=== PATIENT | female | born 1935 | race Caucasian/White ===

== ENCOUNTER → 2017-04-16 | Outpatient (CLI) | payer MEDICARE, BC ==
[~2017-04-16] MED LIST: CELE20TA PO; CLON.1 PO; DYAZ37.52 PO; LEVO75TA3 PO
[2017-04-16 13:29] LABS: HEMATOCRIT 38.4 % (35.0-46.0); MEAN CORPUSCULAR HEMOGLOBIN 30.8 PG (27.0-34.0); MEAN CORPUSCULAR HGB CONC 33.5 % (32.0-36.0); PLATELET COUNT 198 TH/MM3 (150-450); RED BLOOD COUNT 4.18 MIL/MM3 (4.00-5.30); RED CELL DISTRIBUTION WIDTH 13.8 % (11.6-17.2); REVIEW FLAG FINAL; WHITE BLOOD COUNT 4.4 TH/MM3 (4.0-11.0)
[2017-04-16 13:31] LABS: ALT (GPT) 20 U/L (10-53); ANION GAP 4 MEQ/L (5-15); AST (GOT) 23 U/L (15-37); BICARBONATE 31.5 MEQ/L (21.0-32.0); BLOOD UREA NITROGEN 13 MG/DL (7-18); CHLORIDE 102 MEQ/L (98-107); GLOMERULAR FILTRATION RATE 65 ML/MIN (>89); GLUCOSE,FASTING 90 MG/DL (74-99); SODIUM (NA) 137 MEQ/L (136-145)
[2017-04-16 13:35] LABS: ALKALINE PHOSPHATASE 82 U/L (45-117); HDL CHOLESTEROL 70.2 MG/DL (40.0-60.0); LDL CHOLESTEROL 67 MG/DL (0-99); TOTAL BILIRUBIN ADULT 0.8 MG/DL (0.2-1.0)
== END ==
LOC: PLAB 10:23
DX: I25.10 Atherosclerotic heart disease of native coronary artery without angina pectoris (principal); I50.22 Chronic systolic (congestive) heart failure
CPT/HCPCS: 36415; 80053; 80061; 83880; 85027

== ENCOUNTER 2017-06-09 22:45 | Inpatient (IN) | payer MEDICARE, BC ==
[~2017-06-09] VITALS: Ht 157.5 cm; Wt 62.0 kg
[2017-06-09 22:51] VITALS: BP 83/54; PULSE 102; RESP 20; TEMP 97.4; O2SAT 99
[2017-06-09] MEDS ORDERED: SODIUM CHLORIDE 0.9% FLUSH 10 ML FLUSH IVF PRN (23:00)
[2017-06-09 23:03] VITALS: RESP 20; O2SAT 100
[2017-06-09 23:07] VITALS: BP 91/53; PULSE 102; RESP 15
[2017-06-09 23:10] VITALS: BP 86/51; PULSE 105; RESP 20; O2SAT 100
[2017-06-09 23:15] VITALS: O2SAT 100
[2017-06-09] MEDS ORDERED: SODIUM CHLORID 0.9% 500 ML INJ 500 ML IV ONE (23:15)
[2017-06-09] MEDS ORDERED: HEPARIN SODIUM - IV 10,000 UNITS/10 ML VIAL IV ONE (23:15)
--- NOTE | 2017-06-09 23:25 | RADRPT ---
EXAM DATE/TIME: 06/09/2017 23:13 [place] COMPARISON: No previous studies available for comparison. INDICATIONS : Chest pain. MEDICAL HISTORY : None. SURGICAL HISTORY : None. ENCOUNTER: Initial ACUITY: 1 day PAIN SCORE: 7/10 LOCATION: Bilateral chest FINDINGS: A single view of the chest demonstrates no focal consolidation. Minimal basilar dependent atelectasis . No effusion. No pneumothorax. Mildly tortuous aorta. Mild cardiomegaly. CONCLUSION: 1. Minimal basilar dependent atelectasis. No effusion or pneumothorax. Bong Wilkinson MD on June 09, 2017 at 23:21 Board Certified Radiologist. This report was verified electronically.
[2017-06-09] MEDS ORDERED: SIMV20TA PO (23:29)
[2017-06-09] MEDS ORDERED: CLOP75TA PO (23:29)
[2017-06-09] MEDS ORDERED: ESCI20TA PO (23:29)
[2017-06-09] MEDS ORDERED: CARV6.252 PO (23:29)
[2017-06-09] MEDS ORDERED: POTA-163 PO (23:29)
[2017-06-09] MEDS ORDERED: CARV3.12 PO (23:29)
[2017-06-09] MEDS ORDERED: FURO40TA PO (23:29)
[2017-06-09] MEDS ORDERED: PANT40TA3 PO (23:29)
[2017-06-09] MEDS ORDERED: SACU1TAB7 PO (23:29)
[2017-06-09] MEDS ORDERED: LEVO88TA2 PO (23:29)
[2017-06-09] MEDS ORDERED: ONDANSETRON HCL 4 MG/2 ML VIAL IV PUSH ONE (23:30)
[2017-06-09] MEDS ORDERED: MORPHINE SULFATE 4 MG/ML INJ IV PUSH ONE (23:30)
--- NOTE | 2017-06-09 23:32 | PD ---
HPI Chief Complaint: Chest Pain Time Seen by Provider: 22:57 Travel History International Travel<30 days: No Contact w/Intl Traveler<30days: No Traveled to known affect area: No History of Present Illness HPI 81-year-old female came to the emergency room with history of sudden onset chest pain left-sided going down both her arms about half an hour prior to coming to the emergency room. Her called 911. When EMS arrived they noticed that she was in A. fib with RVR. Patient said her pain initially was 10 out of 10. EMS called over the radio to get permission for Cardizem 20 mg IV which was given to them. When patient arrived her heart rate had come down to 100s. After arrival patient said that her chest pain was completely gone but now she was experiencing pain in the back of her neck. She did look in moderate distress and anxious somewhat. Initial blood pressure was 86/51 upon arrival. Patient has history of coronary artery disease and has had 2 stents put in. Last stent was about 2 years ago as per her . Patient had received 225 mg of aspirin as per EMS. [facility] Past Medical History Narrative Medical List of her past medical, surgical, social and family history is reviewed from the nursing note. Atrial Fibrillation: Yes Depression: Yes Diminished Hearing: No Hypertension: Yes Immunizations Current: Yes Thyroid Disease: Yes Tetanus Vaccination: Unknown Influenza Vaccination: Yes ?: Not Menopausal: Yes Past Surgical History Other Surgery: Yes (SINUS SURGERY) Social History Alcohol Use: No Tobacco Use: No Substance Use: No Allergies-Medications (Allergen,Severity, Reaction): Coded Allergies: Sulfa (Sulfonamide Antibiotics) (Unverified Allergy, Mild, 12/12/16) Comments List of her allergies reviewed from the nursing note. Reported Meds & Prescriptions Reported Meds & Active Scripts Active Reported Levothyroxine (Levothyroxine Sodium) 88 Mcg Tab 88 Mcg PO DAILY Pantoprazole (Pantoprazole Sodium) 40 Mg Tab 40 Mg PO BID Furosemide 40 Mg Tab 40 Mg PO DAILY Clopidogrel (Clopidogrel Bisulfate) 75 Mg Tab 75 Mg PO DAILY Potassium Chloride ER (Potassium Chloride) 20 Meq Tab 20 Meq PO DAILY Entresto (Sacubitril-Valsartan) 49-51 Mg Tab 1 Tab PO DAILY Simvastatin 20 Mg Tab 20 Mg PO DAILY Escitalopram (Escitalopram Oxalate) 20 Mg Tab 20 Mg PO DAILY Narrative Medication List of home medications reviewed from the nursing note. Review of Systems Except as stated in HPI: all other systems reviewed are Neg Cardiovascular: Positive: Chest Pain or Discomfort Physical Exam Narrative GENERAL: Awake, alert, anxious, moderate distress SKIN: Focused skin assessment warm/dry. Pale HEAD: Atraumatic. Normocephalic. EYES: Pupils equal and round. No scleral icterus. No injection or drainage. ENT: No nasal bleeding or discharge. Mucous membranes pink and moist. NECK: Trachea midline. No JVD. CARDIOVASCULAR: Irregularly irregular rhythm. No murmur appreciated. RESPIRATORY: No accessory muscle use. Clear to auscultation. Breath sounds equal bilaterally. GASTROINTESTINAL: Abdomen soft, non-tender, nondistended. Hepatic and splenic margins not palpable. MUSCULOSKELETAL: No obvious deformities. No clubbing. No cyanosis. No edema. NEUROLOGICAL: Awake and alert. No obvious cranial nerve deficits. Motor grossly within normal limits. Normal speech. PSYCHIATRIC: Appropriate mood and affect; insight and judgment normal. Data Data Last Documented VS Vital Signs Date Time Temp Pulse Resp B/P (MAP) Pulse Ox O2 Delivery O2 Flow Rate FiO2 06/10/17 00:30 104 16 92/51 (65) 100 Nasal Cannula 2.00 06/09/17 22:51 97.4 Orders Orders Electrocardiogram (06/09/17 22:57) Basic Metabolic Panel (Bmp) (06/09/17 22:57) Ckmb (Isoenzyme) Profile (06/09/17 22:57) Complete Blood Count With Diff (06/09/17 22:57) Magnesium (Mg) (06/09/17 22:57) Prothrombin Time / Inr (Pt) (06/09/17 22:57) Troponin I (06/09/17 22:57) Chest, Single Ap (06/09/17 22:57) Ecg Monitoring (06/09/17 22:57) Bilateral Bp Monitoring (06/09/17 22:57) Iv Access Insert/Monitor (06/09/17 22:57) Oximetry (06/09/17 22:57) Oxygen Administration (06/09/17 22:57) Sodium Chloride 0.9% Flush (Ns Flush) (06/09/17 23:00) Heparin Inj (Heparin Inj) (06/09/17 23:15) Heparin Inj (Heparin Inj) (06/10/17 05:15) Heparin Inj (Heparin Inj) (06/10/17 05:15) Heparin-D5w 25,000 U/250 Ml (Heparin-D5w (06/09/17 23:15) Act Partial Throm Time (Ptt) (06/10/17 06:15) Sodium Chlorid 0.9% 500 Ml Inj (Ns 500 M (06/09/17 23:15) Morphine Inj (Morphine Inj) (06/09/17 23:30) Ondansetron Inj (Zofran Inj) (06/09/17 23:30) Admit To Inpatient (06/10/17 ) Vital Signs (Adult) Q4H (06/10/17 00:26) Activity Oob With Assistance (06/10/17:26) [place] Machine Operator / Telemetry .CONTINUOUS (06/10/17:26) Intake + Output JAVIER.QSHIFT (06/10/17 00:26) Diet Heart Healthy (06/10/17 Breakfast) Sodium Chlor 0.9% 1000 Ml Inj (Ns 1000 M (06/10/17 01:00) Sodium Chloride 0.9% Flush (Ns Flush) (06/10/17 00:30) Sodium Chloride 0.9% Flush (Ns Flush) (06/10/17 09:00) Ondansetron Inj (Zofran Inj) (06/10/17 00:30) Comprehensive Metabolic Panel (06/10/17 06:00) Complete Blood Count With Diff (06/10/17 06:00) Troponin I (06/10/17 06:00) Troponin I (06/10/17 12:00) Case Management Consult (06/10/17 00:26) Acetaminophen (Tylenol) (06/10/17 00:30) Acetamin-Hydrocod 325-5 Mg ([place] 5-325 (06/10/17 00:30) Morphine Inj (Morphine Inj) (06/10/17 00:30) Docusate Sodium-Senna (Payton-Colace) (06/10/17 09:00) Magnesium Hydroxide Liq (Milk Of Magnesi (06/10/17 00:30) Sennosides (Senokot) (06/10/17 00:30) Bisacodyl Supp (Dulcolax Supp) (06/10/17 00:30) Lactulose Liq (Lactulose Liq) (06/10/17 00:30) Inpatient Certification (06/10/17 ) Admit Order (Ed Use Only) (06/10/17 00:32) Escitalopram (Lexapro) (06/10/17 09:00) Pantoprazole (Protonix) (06/10/17 09:00) Pravastatin (Pravachol) (06/10/17 09:00) Labs Laboratory Tests Test 06/09/17 23:10 06/09/17 23:15 White Blood Count 4.4 TH/MM3 Red Blood Count 4.42 MIL/MM3 Hemoglobin 13.8 GM/DL Hematocrit 40.5 % Mean Corpuscular Volume 91.7 FL Mean Corpuscular Hemoglobin 31.2 PG Mean Corpuscular Hemoglobin Concent 34.0 % Red Cell Distribution Width 13.9 % Platelet Count 195 TH/MM3 Mean Platelet Volume 8.7 FL Neutrophils (%) (Auto) 34.0 % Lymphocytes (%) (Auto) 53.5 % Monocytes (%) (Auto) 6.0 % Eosinophils (%) (Auto) 5.8 % Basophils (%) (Auto) 0.7 % Neutrophils # (Auto) 1.5 TH/MM3 Lymphocytes # (Auto) 2.3 TH/MM3 Monocytes # (Auto) 0.3 TH/MM3 Eosinophils # (Auto) 0.3 TH/MM3 Basophils # (Auto) 0.0 TH/MM3 CBC Comment AUTO DIFF Differential Comment AUTO DIFF CONFIRMED Prothrombin Time 11.2 SEC Prothromb Time International Ratio 1.1 RATIO Blood Urea Nitrogen 20 MG/DL Creatinine 0.95 MG/DL Random Glucose 94 MG/DL Calcium Level 9.2 MG/DL Magnesium Level 1.9 MG/DL Sodium Level 139 MEQ/L Potassium Level 3.7 MEQ/L Chloride Level 103 MEQ/L Carbon Dioxide Level 26.7 MEQ/L Anion Gap 9 MEQ/L Estimat Glomerular Filtration Rate 56 ML/MIN Total Creatine Kinase 95 U/L Troponin I LESS THAN 0.02 NG/ML Activated Partial Thromboplast Time 27.5 SEC [facility] Medical Decision Making Medical Screen Exam Complete: Yes Emergency Medical Condition: Yes Medical Record Reviewed: Yes Interpretation(s) Twelve-lead EKG was reviewed by me. Atrial flutter with fibrillation, PVCs, questionable inferior wall ST elevation in lateral depression. Heart rate of 101 bpm. Differential Diagnosis New onset A. fib, STEMI, non-STEMI Narrative Course 12:22 AM after patient's arrival and seeing the 12-lead EKG a STEMI alert was called since this seemed to be ST elevation in the inferior leads. A copy of the EKG was transmitted to the warehouse distribution manager reconciliation specialist Dr. Quach. After reviewing the EKG Dr. Quach called off the STEMI alert. He was okay with the heparin bolus and drip that was ordered. He wanted to wait for the blood test result which has come back and troponin is negative. Patient will be admitted to CICU. Awaiting for the hospitalist to call back. She was given 500 cc of fluid bolus. Currently the heart rate is between 100s to 1 teens. Patient remained chest pain-free. Critical Care Narrative Aggregate critical care time was 45 minutes. Time to perform other separately billable procedures was not included in the critical care time. My time did not include minutes spent treating any other patients simultaneously or on activities that did not directly contribute to the patient's treatment. The services I provided to this patient were to treat and/or prevent clinically significant deterioration that could result in: Chest pain, new onset A. fib, heparin bolus and drip I provided critical care services requiring my management, as noted below: Chart data review, documentation time, medication orders and management, vital sign assessments/reviewing monitor data, ordering and reviewing lab tests, ordering and interpreting/reviewing x-rays and diagnostic studies, care of the patient and discussion of the patient with the admitting physicians. Procedures EKG Prior to Arrival: No Physician Communication Physician Communication Dr. Quach Diagnosis Primary Impression: New onset a-fib Additional Impressions: Atrial fibrillation with RVR Chest pain Qualified Codes: R07.9 - Chest pain, unspecified Admitting Information Admitting Physician Requests: Admit Scripts Aspirin (Aspirin) 81 Mg Chew 81 MG CHEW DAILY for a-fib for 30 Days, #30 TAB 0 Refills Prov: Jazz Valencia MD 06/11/17 Diltiazem CD 24 HR (Diltiazem CD 24 HR) 120 Mg Caper 120 MG PO DAILY for a-fib for 30 Days, #30 CAP 0 Refills Prov: Jazz Valencia MD 06/11/17 Chel Cazares MD Jun 09, 2017 23:32
[2017-06-09 23:44] LABS: AUTOMATED NEUTROPHIL # 1.5 TH/MM3 (1.8-7.7); BASOPHIL % 0.7 % (0.0-2.0); EOSINOPHIL # 0.3 TH/MM3 (0-0.4); EOSINOPHIL % 5.8 % (0.0-4.0); HEMATOCRIT 40.5 % (35.0-46.0); HEMOGLOBIN 13.8 GM/DL (11.6-15.3); LYMPH % 53.5 % (9.0-44.0); LYMPHOCYTE # 2.3 TH/MM3 (1.0-4.8); MEAN CELL VOLUME 91.7 FL (80.0-100.0); MEAN CORPUSCULAR HEMOGLOBIN 31.2 PG (27.0-34.0); MEAN PLATELET VOLUME 8.7 FL (7.0-11.0); MONOCYTE # 0.3 TH/MM3 (0-0.9); PLATELET COUNT 195 TH/MM3 (150-450); RED BLOOD COUNT 4.42 MIL/MM3 (4.00-5.30); RED CELL DISTRIBUTION WIDTH 13.9 % (11.6-17.2); WHITE BLOOD COUNT 4.4 TH/MM3 (4.0-11.0)
[2017-06-09 23:47] LABS: INTERNATIONAL NORMALIZED RATIO 1.1 RATIO; PROTHROMBIN TIME - PATIENT 11.2 SEC (9.8-11.6)
[2017-06-10] VITALS (24 sets, daily range): BP systolic 85–119; BP diastolic 46–68; PULSE 66–131; RESP 14–20; TEMP 98–98.6; O2SAT 96–100
[2017-06-10 00:03] LABS: BICARBONATE 26.7 MEQ/L (21.0-32.0); BLOOD UREA NITROGEN 20 MG/DL (7-18); CALCIUM 9.2 MG/DL (8.5-10.1); CHLORIDE 103 MEQ/L (98-107); CREATININE 0.95 MG/DL (0.50-1.00); GLOMERULAR FILTRATION RATE 56 ML/MIN (>89); GLUCOSE,RANDOM 94 MG/DL (74-106); MAGNESIUM 1.9 MG/DL (1.5-2.5); SODIUM (NA) 139 MEQ/L (136-145); TROPONIN I LESS THAN 0.02 NG/ML (0.02-0.05)
[2017-06-10] MEDS ORDERED: MAGNESIUM HYDROXIDE SUSP 30 ML CUP PO PRN (00:30)
[2017-06-10] MEDS ORDERED: SODIUM CHLORIDE 0.9% FLUSH 10 ML FLUSH IV FLUSH PRN (00:30)
[2017-06-10] MEDS ORDERED: LACTULOSE SYRUP 20 GM/30 ML CUP PO PRN (00:30)
[2017-06-10] MEDS ORDERED: BISACODYL 10 MG SUPP RECTAL PRN (00:30)
[2017-06-10] MEDS ORDERED: ACETAMINOPHEN/HYDROcodone 325 MG/5 MG TAB PO PRN (00:30)
[2017-06-10] MEDS ORDERED: SENNOSIDES 8.6 MG TAB PO PRN (00:30)
[2017-06-10] MEDS ORDERED: ACETAMINOPHEN 325 MG TAB PO PRN (00:30)
[2017-06-10] MEDS ORDERED: MORPHINE SULFATE 2 MG/ML INJ IV PUSH PRN (00:30)
[2017-06-10] MEDS ORDERED: ONDANSETRON HCL 4 MG/2 ML VIAL IVP PRN (00:30)
--- NOTE | 2017-06-10 01:13 | HHI.HP ---
HPI Service [facility] Primary Care Physician Non-Staff Admission Diagnosis new-onset A. fib, chest pain, A. fib with RVR Diagnoses: (1) Atrial fibrillation with RVR Diagnosis: Principal (2) Chest pain Diagnosis: Principal (3) Hypotension Diagnosis: Principal (4) Dehydration Diagnosis: Principal Travel History International Travel<30 Days: No Contact w/Intl Traveler <30 Da: No Traveled to Known Affected Are: No History of Present Illness This is an 81-year-old female with a PMH of HTN, CAD, Depression and Hypothyroidism was brought to the ER by EMS secondary to complaints of chest pain. Per pt, states she hadn't been feeling well all day, feeling tired/ fatigued which is unusual for her. States she was in bed reading a book when she had acute onset of chest pain. Chest pain substernal, intermittent, severe , 9/10, radiating to bilateral upper arms. Shortly after chest pain states she developed palpitations. Upon EMS arrival, pt noted to be in A-fib w/ RVR, HR 130's s/p Cardizem 20mg IV x1 w/ HR down to low 100's. Denies h/o A-fib. Follows w/ Dr. Malone as outpatient, normal work up on last visit. EKG obtained in ER concerning for acute ischemia, STEMI alert initiated, however upon reviewed by Cardiology STEMI cancelled. Started on Heparin gtt. Currently chest pain free. BP 91/53, HR 102, O2 sat 100% on 2L NC, Afebrile. CBC essentially unremarkable. Chemistry unremarkable except for BUN 20. GFR 56. Troponin negative. INR 1.1. CXR minimal basilar atelectasis. Review of Systems Except as stated in HPI: all other systems reviewed are Neg ROS: 14 point review of systems otherwise negative. Past Family Social History Past Medical History PMH: HTN, CAD, Depression and Hypothyroidism Past Surgical History PAST SURGICAL HISTORY: Sinus Surgery, Cardiac Stent Allergies: Coded Allergies: Sulfa (Sulfonamide Antibiotics) (Unverified Allergy, Mild, 12/12/16) Family History PAST FAMILY HISTORY: Reviewed. No h/o DM or CAD Social History PAST SOCIAL HISTORY: Negative for alcohol, tobacco or drugs. Physical Exam Vital Signs Vital Signs Date Time Temp Pulse Resp B/P (MAP) Pulse Ox O2 Delivery O2 Flow Rate FiO2 06/10/17 00:07 100 20 90/52 (65) 100 Nasal Cannula 2.00 06/09/17 23:41 20 100 Nasal Cannula 2.00 06/09/17 23:15 100 2.00 06/09/17 23:15 100 Nasal Cannula 2.00 06/09/17 23:10 105 20 86/51 (63) 100 Nasal Cannula 2.00 06/09/17 23:07 102 15 91/53 (66) Nasal Cannula 2.00 06/09/17 23:03 20 100 Nasal Cannula 2.00 06/09/17 23:02 100 Nasal Cannula 2.00 06/09/17 22:51 97.4 102 20 83/54 (64) 99 Physical Exam PE: GENERAL: Very pleasant elderly white female in no acute distress. HEENT: PERRLA, EOMI. No scleral icterus or conjunctival pallor. No lid lag or facial droop. CARDIOVASCULAR: Irregularly irregular, HR 100s. No obvious murmurs to auscultation. No chest tenderness to palpation. RESPIRATORY: No obvious rhonchi or wheezing. Clear to auscultation. Breath sounds equal bilaterally. GASTROINTESTINAL: Abdomen soft, non-tender, nondistended. BS normal. MUSCULOSKELETAL: Extremities without clubbing, cyanosis, or edema. No obvious deformities. NEUROLOGICAL: Awake, alert and oriented x4. No focal neurologic deficits. Moving both upper and lower extremities spontaneously. Laboratory Laboratory Tests Test 06/09/17 23:10 White Blood Count 4.4 Red Blood Count 4.42 Hemoglobin 13.8 Hematocrit 40.5 Mean Corpuscular Volume 91.7 Mean Corpuscular Hemoglobin 31.2 Mean Corpuscular Hemoglobin Concent 34.0 Red Cell Distribution Width 13.9 Platelet Count 195 Mean Platelet Volume 8.7 Neutrophils (%) (Auto) 34.0 Lymphocytes (%) (Auto) 53.5 Monocytes (%) (Auto) 6.0 Eosinophils (%) (Auto) 5.8 Basophils (%) (Auto) 0.7 Neutrophils # (Auto) 1.5 Lymphocytes # (Auto) 2.3 Monocytes # (Auto) 0.3 Eosinophils # (Auto) 0.3 Basophils # (Auto) 0.0 CBC Comment AUTO DIFF Differential Comment AUTO DIFF CONFIRMED Prothrombin Time 11.2 Prothromb Time International Ratio 1.1 Blood Urea Nitrogen 20 Creatinine 0.95 Random Glucose 94 Calcium Level 9.2 Magnesium Level 1.9 Sodium Level 139 Potassium Level 3.7 Chloride Level 103 Carbon Dioxide Level 26.7 Anion Gap 9 Estimat Glomerular Filtration Rate 56 Total Creatine Kinase 95 Troponin I LESS THAN 0.02 Result Diagram: 06/09/17230906/09/172309 Caprini VTE Risk Assessment Caprini VTE Risk Assessment: No/Low Risk (score <= 1) Caprini Risk Assessment Model Point Value = 1 Point Value = 2 Point Value = 3 Point Value = 5 Age 41-60 Minor surgery BMI > 25 kg/m2 Swollen legs Varicose veins or History of unexplained or recurrent spontaneous Oral contraceptives or hormone replacement Sepsis (< 1 month) Serious lung disease, including pneumonia (< 1 month) Abnormal pulmonary function Acute myocardial infarction Congestive heart failure (< 1 month) History of inflammatory bowel disease Medical patient at bed rest Age 61-74 Arthroscopic surgery Major open surgery (> 45 min) Laparoscopic surgery (> 45 min) Malignancy Confined to bed (> 72 hours) Immobilizing plaster cast Central venous access Age >= 75 History of VTE Family history of VTE Factor V Leiden Prothrombin [id number] Lupus anticoagulant Anticardiolipin antibodies Elevated serum homocysteine Heparin-induced thrombocytopenia Other congenital or acquired thrombophilia Stroke (< 1 month) Elective arthroplasty Hip, pelvis, or leg fracture Acute spinal cord injury (< 1 month) Prophylaxis Regimen Total Risk Factor Score Risk Level Prophylaxis Regimen 0-1 Low Early ambulation 2 Moderate Order ONE of the following: *Sequential Compression Device (SCD) *Heparin 5000 units SQ BID 3-4 Higher Order ONE of the following medications: *Heparin 5000 units SQ TID *Enoxaparin/Lovenox 40 mg SQ daily (WT < 150 kg, CrCl > 30 mL/min) *Enoxaparin/Lovenox 30 mg SQ daily (WT < 150 kg, CrCl > 10-29 mL/min) *Enoxaparin/Lovenox 30 mg SQ BID (WT < 150 kg, CrCl > 30 mL/min) AND/OR *Sequential Compression Device (SCD) 5 or more Highest Order ONE of the following medications: *Heparin 5000 units SQ TID (Preferred with Epidurals) *Enoxaparin/Lovenox 40 mg SQ daily (WT < 150 kg, CrCl > 30 mL/min) *Enoxaparin/Lovenox 30 mg SQ daily (WT < 150 kg, CrCl > 10-29 mL/min) *Enoxaparin/Lovenox 30 mg SQ BID (WT < 150 kg, CrCl > 30 mL/min) AND *Sequential Compression Device (SCD) Assessment and Plan Problem List: (1) Atrial fibrillation with RVR ICD Code: I48.91 - Unspecified atrial fibrillation Status: Acute (2) Chest pain ICD Code: R07.9 - Chest pain, unspecified Status: Acute (3) Dehydration ICD Code: E86.0 - Dehydration (4) Hypotension ICD Code: I95.9 - Hypotension, unspecified Assessment and Plan A/P: 1. Chest Pain: r/o ACS, EKG w/ concern for ischemia, however STEMI cancelled. Currently chest pain free. Initial trop negative. Admit to CIC, place on telemetry, check serial cardiac enzymes for trend. Continue w/ Heparin gtt. Start ASA, resume Statin. Hold B-Agus and NTG in light of hypotension. Morphine prn. Dr. Quach consulted as part of STEMI Alert, follows w/ Dr. Malone, will consult for further eval/recommendations. 2. A-fib w/ RVR: New Onset. S/p Cardizem 20mg IV x1 by EMS, HR 100's. Monitor on telemetry, check enzymes as above. Check Echo to eval for valvular abnormality/cardiomyopathy. 3. Hypotension: BP 80-90's systolic since arrival, no h/o hypotension. Hold BP meds, IVF for hydration, eval closely for possible ischemia w/ shock. 4. Dehydration: BUN 20, GFR 56. IVF for hydration, repeat labs in am. 5. DVT Prophylaxis: SCD/Teds. 6. Social work for d/c planning as needed. 7. Case discussed w/ ER physician at length, labs/records/imaging reviewed by me. Physician Certification 2 Midnight Certification Type: Admission for Inpatient Services Order for Inpatient Services The services are ordered in accordance with Medicare regulations or non- Medicare payer requirements, as applicable. In the case of services not specified as inpatient-only, they are appropriately provided as inpatient services in accordance with the 2-midnight benchmark. Estimated LOS (days): 2 days is the estimated time the patient will need to remain in the hospital, assuming treatment plan goals are met and no additional complications. Post-Hospital Plan: Not yet determined Problem Qualifiers (1) Chest pain: Qualified Codes: R07.9 - Chest pain, unspecified Fatou James MD Jun 10, 2017 01:12
[2017-06-10] MEDS: SODIUM CHLOR 0.9% 1000 ML INJ 1,000 ML IV SCH ×3 (02:33→21:36)
[2017-06-10] MEDS: HEPARIN-D5W 25,000 U/250 ML 250 ML IV PRN (03:38)
[2017-06-10] MEDS ORDERED: HEPARIN SODIUM - IV 10,000 UNITS/10 ML VIAL IV PRN ×2 (05:15)
[2017-06-10] MEDS: LEVOTHYROXINE SODIUM 88 MCG TAB PO SCH (06:40)
[2017-06-10 07:22] LABS: BASOPHIL % 0.8 % (0.0-2.0); EOSINOPHIL # 0.2 TH/MM3 (0-0.4); EOSINOPHIL % 4.3 % (0.0-4.0); HEMATOCRIT 34.5 % (35.0-46.0); LYMPHOCYTE # 1.8 TH/MM3 (1.0-4.8); MEAN CELL VOLUME 91.3 FL (80.0-100.0); MEAN CORPUSCULAR HEMOGLOBIN 31.9 PG (27.0-34.0); MEAN CORPUSCULAR HGB CONC 34.9 % (32.0-36.0); MEAN PLATELET VOLUME 8.1 FL (7.0-11.0); MONO % 7.3 % (0.0-8.0); MONOCYTE # 0.3 TH/MM3 (0-0.9); NEUT % 46.6 % (16.0-70.0); PLATELET COUNT 173 TH/MM3 (150-450); RED BLOOD COUNT 3.77 MIL/MM3 (4.00-5.30); RED CELL DISTRIBUTION WIDTH 13.9 % (11.6-17.2); WHITE BLOOD COUNT 4.4 TH/MM3 (4.0-11.0)
[2017-06-10 07:54] LABS: ALBUMIN 3.1 GM/DL (3.4-5.0); AST (GOT) 22 U/L (15-37); BICARBONATE 27.9 MEQ/L (21.0-32.0); BLOOD UREA NITROGEN 17 MG/DL (7-18); CALCIUM 8.5 MG/DL (8.5-10.1); CHLORIDE 105 MEQ/L (98-107); GLOMERULAR FILTRATION RATE 69 ML/MIN (>89); GLUCOSE,RANDOM 91 MG/DL (74-106); SODIUM (NA) 138 MEQ/L (136-145)
[2017-06-10 07:55] LABS: ALT (GPT) 14 U/L (10-53)
[2017-06-10 07:59] LABS: ALKALINE PHOSPHATASE 71 U/L (45-117); TOTAL BILIRUBIN ADULT 0.5 MG/DL (0.2-1.0); TOTAL PROTEIN 5.9 GM/DL (6.4-8.2); TROPONIN I 0.08 NG/ML (0.02-0.05)
[2017-06-10] MEDS: PANTOPRAZOLE SOD 40 MG DELAYED RELEASE TAB PO SCH ×2 (10:10→21:36)
[2017-06-10] MEDS: PRAVASTATIN SOD 40 MG TAB PO SCH (10:11)
[2017-06-10] MEDS: SODIUM CHLORIDE 0.9% FLUSH 10 ML FLUSH IV FLUSH SCH ×2 (10:11→21:36)
[2017-06-10] MEDS: DOCUSATE SODIUM 50 MG/SENNA 8.6 MG TAB PO SCH ×2 (10:11→21:36)
[2017-06-10] MEDS: ESCITALOPRAM OXALATE 20 MG TAB PO SCH (10:12)
[2017-06-10] MEDS ORDERED: DIGOXIN 0.5 MG/2 ML VIAL IV PUSH ONE (12:15)
[2017-06-10] MEDS: DILTIAZEM HCL 30 MG TAB PO SCH ×2 (13:08→17:12)
--- NOTE | 2017-06-10 13:54 | MB ---
cc: TRES METCALF MD, HANSCY M.D. DATE OF CONSULTATION: 06/10/2017. REASON FOR CONSULTATION: Electrophysiology consult for atrial fibrillation with fast ventricular response. HISTORY OF PRESENT ILLNESS: Mrs. Rodriguez is an 81-year-old female living in [place] and spending the [place] in [place] previously seen by Dr. Metcalf with history of atrial fibrillation not on anticoagulation only on aspirin and Plavix followed by a doctor in the [facility] admitted to the emergency room due to atrial fibrillation with fast ventricular response. She was very symptomatic. Cardizem was initiated. Blood pressure is very low. Not much room for medication optimization. I was consulted for evaluation and management. The chart was reviewed. The patient was evaluated. ALLERGIES: 1. SULFA. SOCIAL HISTORY: Negative for smoking and drinking. FAMILY HISTORY: Noncontributory to her current medical condition. MEDICATIONS: 1. Plavix 75 milligrams a day. 2. Zocor 20 milligrams a day. 3. Coreg 2.125 milligrams a day. 4. Entresto 46/51 milligrams a day. 5. Potassium. 6. Lasix. 7. Protonix. 8. Levoxyl 80 micrograms a day. REVIEW OF SYSTEMS: She refers no chest pain but shortness of breath and feeling tired. No fever. PHYSICAL EXAMINATION: GENERAL: Alert, fully oriented. VITAL SIGNS: Her blood pressure is 96/68, pulse around 115 to 130 on the monitor, respiratory rate is 18. LUNGS: Ventilated. CARDIOVASCULAR: S1-S2, irregular, tachycardic. ABDOMEN: Abdomen soft, no mass, no bruits. EXTREMITIES: No edema. EKGS: Electrocardiogram indicated atrial flutter with fast ventricular response and diffuse S-T changes. Poor R wave progression. LABORATORY DATA: Hemoglobin is 12, white blood cells 4.4. Potassium 3.9, creatinine is 0.80. Troponin is 0.08. INR is 1.1. ASSESSMENT AND RECOMMENDATIONS: Mrs. Rodriguez has apparently atrial flutter with fast ventricular response. She has had multiple other episodes. Whenever she has that, she is very symptomatic. She is on multiple heart failure medications. There is no significant information about her in the electronic medical record. As mentioned before, heart rate is very difficult to control and the patient is very symptomatic. She is on aspirin and Plavix. I am not sure why she is on that instead of being on a NOAC. There is less risk of bleeding with a NOAC than with the combination of aspirin and Plavix. At this point, my recommendation is to continue with medical management. A 2-D echocardiogram will be ordered to evaluate wall motion and valvular function. Heart rate control is the objective. The patient will benefit from ablation. Further decision by Dr. Metcalf in the morning. Piter Sheehan MD /YESY /12:13 PM /1:42 PM
--- NOTE | 2017-06-10 17:02 | EKG ---
Date Performed: 06/09/2017 Time Performed: 23:00:34 PTAGE: 81 years EKG: AFLUTTER WITH RVR WITH OCCASIONAL ECTOPIC PREMATURE COMPLEXES POSSIBLE ANTERIOR MYOCARDIAL INFARCTION INFERIOR MYOCARDIAL INFARCTION MODERATE T-WAVE ABNORMALITY, CONSIDER LATERAL ISCHEMIA ABNO RMAL ECG PREVIOUS TRACING : 08/12/2011 14.30 Compared to prior tracing, now in Aflutter with RVR and lat eral ST/T wave changes DOCTOR: Todd Quach Interpretating Date/Time 06/10/2017 17:01:43
--- NOTE | 2017-06-10 18:39 | ECHRPT ---
Indication: CONCLUSIONS The left ventricular systolic function is bpqhzhou-io-psacxsy reduced with an estimated ejection fra ction in the range of 35-40%. There is global left ventricular dysfunction. Jwlzxcdv-ot-rprhpd mitral valve regurgitation. The mitral valve regurgitation jet is directed posteriorly. Mild aortic valve regurgitation. There is mild tricuspid valve regurgitation. BP: 98 / 68 HR: 78 Rhythm: Sinus MEASUREMENTS (Male / Female) Normal Values Technical Quality:Good 2D ECHO LV Diastolic Diameter PLAX 4.5 cm 4.2 - 5.9 / 3.9 - 5.3 cm LV Systolic Diameter PLAX 3.8 cm IVS Diastolic Thickness 1.1 cm 0.6 - 1.0 / 0.6 - 0.9 cm LVPW Diastolic Thickness 1.1 cm 0.6 - 1.0 / 0.6 - 0.9 cm LV Relative Wall Thickness 0.5 RV Internal Dim ED PLAX 2.5 cm LVOT Diameter 1.9 cm LA Systolic Diameter LX 3.9 cm 3.0 - 4.0 / 2.7 - 3.8 cm LV Ejection Fraction MOD 4C 39.8 % LV Cardiac Index MOD 4C 1883.5 cm/minm LV Ejection Fraction 4C AL 41.5 % LV Cardiac Index 4C AL 2039.7 cm/minm M-MODE Aortic Root Diameter MM 2.8 cm LA Systolic Diameter MM 3.4 cm LA Ao Ratio MM 1.2 AV Cusp Separation MM 1.5 cm DOPPLER AV Peak Velocity 118.0 cm/s AV Peak Gradient 5.6 mmHg AI Peak Velocity 362.5 cm/s AI Peak Gradient 52.6 mmHg AI Pressure Half Time 324.0 ms LVOT Peak Velocity 77.5 cm/s LVOT Peak Gradient 2.4 mmHg AV Area Cont Eq pk 1.9 cm MV Area PHT 3.9 cm LV E' Lateral Velocity 8.7 cm/s LV E' Septal Velocity 3.6 cm/s TR Peak Velocity 251.0 cm/s TR Peak Gradient 25.2 mmHg Right Atrial Pressure 10.0 mmHg Pulmonary Artery Systolic Pressu 35.2 mmHg Right Ventricular Systolic Press 35.2 mmHg PV Peak Velocity 76.0 cm/s PV Peak Gradient 2.3 mmHg FINDINGS LEFT VENTRICLE The left ventricular systolic function is jxhnrhkz-mi-awshenr reduced with an estimated ejection fra ction in the range of 35-40%. Normal left ventricular size. Wall thickness is normal. There is global left ventricular dysfunction. RIGHT VENTRICLE Normal right ventricular size. The right ventricular systoilc function is mildly decreased. LEFT ATRIUM The left atrial size is mildly dilated. RIGHT ATRIUM The right atrial size is normal. ATRIAL SEPTUM Normal atrial septal thickness without atrial level shunting by limited color doppler interrogation. AORTA The aortic root and proximal ascending aorta are normal in size on limited imaging. MITRAL VALVE Mild thickening of the mitral valve leaflets. Gpyfbnyq-no-rssahj mitral valve regurgitation. The mitral valve regurgitation jet is directed posteriorly. AORTIC VALVE Trileaflet aortic valve. Aortic valve sclerosis is present. Mild aortic valve regurgitation. No aortic valve stenosis. TRICUSPID VALVE Structurally normal tricuspid valve. There is mild tricuspid valve regurgitation. The estimated pulmonary arterial pressure is 35 mmHg. PULMONARY VALVE Trivial pulmonary valve regurgitation. VESSELS The inferior vena cava is normal in size. PERICARDIUM No pericardial effusion. Todd Quach DO (Electronically Signed) Final Date:10 June 2017 18:38
[2017-06-11] VITALS (20 sets, daily range): BP systolic 108–134; BP diastolic 54–64; PULSE 61–88; RESP 16; TEMP 97.3–98.5; O2SAT 95–98
[2017-06-11] MEDS: DILTIAZEM HCL 30 MG TAB PO SCH ×2 (00:47→06:16)
[2017-06-11] MEDS: LEVOTHYROXINE SODIUM 88 MCG TAB PO SCH (06:16)
[2017-06-11] MEDS: SODIUM CHLOR 0.9% 1000 ML INJ 1,000 ML IV SCH ×2 (08:05→16:44)
--- NOTE | 2017-06-11 08:05 | PD.CARD.PN ---
Subjective Subjective Remarks Pt without complaints Objective Medications Current Medications Medications (Trade) Dose Ordered Sig/Adam Route Start Time Stop Time Status Last Admin (Heparin Inj) 5,000 units UNSCH PRN IV 06/10/17 05:15 (Heparin Inj) 2,500 units UNSCH PRN IV 06/10/17 05:15 Heparin Sodium/ Dextrose 250 ml @ 7 mls/hr TITRATE PRN IV 06/09/17 23:15 06/10/17 03:38 Sodium Chloride 1,000 ml @ 100 mls/hr Q10H IV 06/10/17 01:00 06/10/17 21:36 (NS Flush) 2 ml UNSCH PRN IV FLUSH 06/10/17 00:30 (NS Flush) 2 ml BID IV FLUSH 06/10/17 09:00 06/10/17 21:36 (Zofran Inj) 4 mg Q6H PRN IVP 06/10/17 00:30 (Tylenol) 650 mg Q6H PRN PO 06/10/17 00:30 ([place] 5-325 Mg) 1 tab Q4H PRN PO 06/10/17 00:30 (Morphine Inj) 2 mg Q3H PRN IV PUSH 06/10/17 00:30 (Payton-Colace) 1 tab BID PO 06/10/17 09:00 06/10/17 21:36 (Milk Of Magnesia Liq) 30 ml Q12H PRN PO 06/10/17 00:30 (Senokot) 17.2 mg Q12H PRN PO 06/10/17 00:30 (Dulcolax Supp) 10 mg DAILY PRN RECTAL 06/10/17 00:30 (Lactulose Liq) 30 ml DAILY PRN PO 06/10/17 00:30 (Lexapro) 20 mg DAILY PO 06/10/17 09:00 (Protonix) 40 mg BID PO 06/10/17 09:00 06/10/17 21:36 (Pravachol) 40 mg DAILY PO 06/10/17 09:00 06/10/17 10:11 (Synthroid) 88 mcg DAILY@0600 PO 06/10/17 06:30 06/11/17 06:16 (Cardizem) 30 mg Q6HR PO 06/10/17 12:15 06/11/17 06:16 Vital Signs / I&O Vital Signs Date Time Temp Pulse Resp B/P (MAP) Pulse Ox O2 Delivery O2 Flow Rate FiO2 06/11/17 06:14 71 16 119/64 (82) 98 06/11/17 00:46 71 16 108/56 (73) 96 06/10/17 18:00 90 06/10/17 15:00 103 06/10/17 15:00 98 14 119/63 (81) 98 06/10/17 14:00 101 06/10/17 13:00 100 06/10/17 12:00 104 06/10/17 11:00 97 06/10/17 11:00 98.6 131 16 106/68 (81) 97 06/10/17 10:00 96 06/10/17 09:00 99 I/O 06/10/17 06/10/17 06/10/17 06/11/17 06/11/17 06/11/17 07:00 15:00 23:00 07:00 15:00 23:00 Intake Total 1014 ml 600 ml Output Total 250 ml 1650 ml Balance 764 ml -1050 ml Intake Oral 200 ml 600 ml IV Total 814 ml Output Urine Total 250 ml 1650 ml # Bowel Movements 0 Physical Exam GENERAL: Well developed, well nourished. No acute distress. HEENT: Jugular venous pressure is normal. CHEST: Lungs clear to auscultation bilaterally. Unlabored respiratory effort. CARDIAC: irregular rate and rhythm without S3, S4, or murmur. ABDOMEN: Soft, nontender, no hepatosplenomegaly. Bowel sounds present. EXTREMITIES: No clubbing, cyanosis, or edema. Laboratory Laboratory Tests Test 06/10/17 11:44 06/10/17 15:14 06/10/17 19:32 Activated Partial Thromboplast Time 48.6 SEC 47.9 SEC Troponin I 0.08 NG/ML Assessment and Plan Assessment and Plan AF- rate controlled, change to long acting cardizem -elevated CHADS VASC but frequent falls, several in last few months => continue with aspirin and plavix as OP Hilda Malone MD Jun 11, 2017 08:05
[2017-06-11] MEDS ORDERED: DILTIAZEM-CD 120 MG CAP ER PO SCH (09:00)
[2017-06-11 09:22] LABS: AUTOMATED NEUTROPHIL # 1.8 TH/MM3 (1.8-7.7); BASOPHIL % 1.1 % (0.0-2.0); EOSINOPHIL # 0.2 TH/MM3 (0-0.4); EOSINOPHIL % 5.4 % (0.0-4.0); HEMATOCRIT 34.3 % (35.0-46.0); HEMOGLOBIN 11.7 GM/DL (11.6-15.3); LYMPH % 36.1 % (9.0-44.0); LYMPHOCYTE # 1.3 TH/MM3 (1.0-4.8); MEAN CELL VOLUME 92.3 FL (80.0-100.0); MEAN CORPUSCULAR HEMOGLOBIN 31.6 PG (27.0-34.0); MEAN CORPUSCULAR HGB CONC 34.2 % (32.0-36.0); MEAN PLATELET VOLUME 8.3 FL (7.0-11.0); MONO % 8.5 % (0.0-8.0); MONOCYTE # 0.3 TH/MM3 (0-0.9); NEUT % 48.9 % (16.0-70.0); PLATELET COUNT 172 TH/MM3 (150-450); RED BLOOD COUNT 3.71 MIL/MM3 (4.00-5.30); RED CELL DISTRIBUTION WIDTH 13.7 % (11.6-17.2); WHITE BLOOD COUNT 3.7 TH/MM3 (4.0-11.0)
--- NOTE | 2017-06-11 09:31 | HHI.PR ---
Subjective Remarks in no acute distress. denies chest pain or sob. no dizziness. Objective Vitals Vital Signs Date Time Temp Pulse Resp B/P (MAP) Pulse Ox O2 Delivery O2 Flow Rate FiO2 06/11/17 07:53 97.8 65 16 134/64 (87) 98 06/11/17 06:14 71 16 119/64 (82) 98 06/11/17 04:00 61 06/11/17 01:00 62 06/11/17 00:46 71 16 108/56 (73) 96 06/11/17 00:00 67 06/11/17 00:00 70 06/10/17 23:00 70 06/10/17 22:00 70 06/10/17 21:00 66 06/10/17 20:00 66 06/10/17 20:00 66 06/10/17 19:00 66 06/10/17 18:00 90 06/10/17 15:00 103 06/10/17 15:00 98 14 119/63 (81) 98 06/10/17 14:00 101 06/10/17 13:00 100 06/10/17 12:00 104 06/10/17 11:00 97 06/10/17 11:00 98.6 131 16 106/68 (81) 97 06/10/17 10:00 96 I/O 06/10/17 06/10/17 06/10/17 06/11/17 06/11/17 06/11/17 07:00 15:00 23:00 07:00 15:00 23:00 Intake Total 1014 ml 600 ml 1280 ml Output Total 250 ml 1650 ml 1100 ml Balance 764 ml -1050 ml 180 ml Intake Oral 200 ml 600 ml 480 ml IV Total 814 ml 800 ml Output Urine Total 250 ml 1650 ml 1100 ml # Bowel Movements 0 Result Diagram: 06/10/17 0708 06/10/17707 Imaging Last Impressions Chest X-Ray 06/09/17 0618 Signed Impressions: Service Date/Time: Friday, June 09, 2017 23:13 - CONCLUSION: 1. Minimal basilar dependent atelectasis. No effusion or pneumothorax. Bong Wilkinson MD Objective Remarks GENERAL: This is a well-nourished, well-developed patient, in no apparent distress. CARDIOVASCULAR: Regular rate and irregular rhythm without murmurs, gallops, or rubs. RESPIRATORY: Clear to auscultation. Breath sounds equal bilaterally. No wheezes , rales, or rhonchi. GASTROINTESTINAL: Abdomen soft, non-tender, nondistended. Normal, active bowel sounds MUSCULOSKELETAL: Extremities without clubbing, cyanosis, or edema. NEURO: Alert & Oriented x4 to person, place, time, situation. Moves all ext x4 Medications and IVs Inpatient Medications Acetaminophen (Tylenol) 650 mg Q6H PRN PO FEVER/PAIN SCALE 1 TO 2; Start at 00:30 Acetaminophen/ Hydrocodone Bitart ([place] 5-325 Mg) 1 tab Q4H PRN PO PAIN SCALE 3 TO 5; Start 06/10/17 at 00:30 Bisacodyl (Dulcolax Supp) 10 mg DAILY PRN RECTAL SEVERE CONSITIPATION; Start at 00:30 Digoxin (Lanoxin Inj) 0.5 mg ONCE ONCE IV PUSH Last administered on 06/10/17at 13:07; Start 06/10/17 at 12:15; Stop 06/10/17 at 12:24; Status DC Diltiazem HCl (Cardizem Cd) 120 mg DAILY PO ; Start 06/11/17 at 09:00 Diltiazem HCl (Cardizem) 30 mg Q6HR PO Last administered on 06/11/17at 06:16; Start 06/10/17 at 12:15; Stop 06/11/17 at 08:06; Status DC Escitalopram Oxalate (Lexapro) 20 mg DAILY PO ; Start 06/10/17 at 09:00 Heparin Sodium (Porcine) (Heparin Inj) 2,500 units UNSCH PRN IV APTT 25 TO 39; Start 06/10/17 at 05:15 Heparin Sodium/ Dextrose 250 ml @ 7 mls/hr TITRATE PRN IV Coagulation Management Last administered on 06/10/17at 03:38; Start 06/09/17 at 23:15 Lactulose (Lactulose Liq) 30 ml DAILY PRN PO SEVERE CONSITIPATION; Start at 00:30 Levothyroxine Sodium (Synthroid) 88 mcg DAILY@0600 PO Last administered on 06/11at 06:16; Start 06/10/17 at 06:30 Magnesium Hydroxide (Milk Of Magnesia Liq) 30 ml Q12H PRN PO Mild constipation ; Start 06/10/17 at 00:30 Morphine Sulfate (Morphine Inj) 2 mg Q3H PRN IV PUSH Pain 6-10; Start 06/10/17 at 00:30 Ondansetron HCl (Zofran Inj) 4 mg Q6H PRN IVP NAUSEA OR VOMITING; Start at 00:30 Pantoprazole Sodium (Protonix) 40 mg BID PO Last administered on 06/10/17at 21: 36; Start 06/10/17 at 09:00 Pravastatin Sodium (Pravachol) 40 mg DAILY PO Last administered on 06/10/17at 10 :11; Start 06/10/17 at 09:00 Senna/Docusate Sodium (Payton-Colace) 1 tab BID PO Last administered on at 21:36; Start 06/10/17 at 09:00 Sennosides (Senokot) 17.2 mg Q12H PRN PO Moderate constipation; Start 06/10/17 at 00:30 Sodium Chloride (NS Flush) 2 ml BID IV FLUSH Last administered on 06/10/17at 21: 36; Start 06/10/17 at 09:00 A/P Problem List: (1) Atrial fibrillation with RVR ICD Code: I48.91 - Unspecified atrial fibrillation Status: Acute (2) Chest pain ICD Code: R07.9 - Chest pain, unspecified Status: Acute (3) Dehydration ICD Code: E86.0 - Dehydration (4) Hypotension ICD Code: I95.9 - Hypotension, unspecified Assessment and Plan A/P 1. Chest Pain: now is pain free- cardiology following. 2. A-fib w/ RVR: New Onset. now HR controlled- continue Cardizem. aspirin and plavix as outpatient per cardiology recommendations. Echo with EF 35-40%. 3. 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 4. DVT Prophylaxis: SCD/Teds. Discharge Planning possibly within the next 24 hrs if remains stable and cleared by cardiology. Problem Qualifiers (1) Chest pain: Qualified Codes: R07.9 - Chest pain, unspecified Minouei,Mohammadreza MD Jun 11, 2017 09:31
[2017-06-11] MEDS: DOCUSATE SODIUM 50 MG/SENNA 8.6 MG TAB PO SCH (09:40)
[2017-06-11] MEDS: PRAVASTATIN SOD 40 MG TAB PO SCH (09:40)
[2017-06-11] MEDS: PANTOPRAZOLE SOD 40 MG DELAYED RELEASE TAB PO SCH (09:40)
[2017-06-11] MEDS: ESCITALOPRAM OXALATE 20 MG TAB PO SCH (09:40)
[2017-06-11] MEDS: SODIUM CHLORIDE 0.9% FLUSH 10 ML FLUSH IV FLUSH SCH (09:41)
[2017-06-11 09:53] LABS: ALBUMIN 3.2 GM/DL (3.4-5.0); AST (GOT) 20 U/L (15-37); BICARBONATE 27.4 MEQ/L (21.0-32.0); BLOOD UREA NITROGEN 10 MG/DL (7-18); CALCIUM 8.6 MG/DL (8.5-10.1); CHLORIDE 107 MEQ/L (98-107); CREATININE 0.71 MG/DL (0.50-1.00); GLOMERULAR FILTRATION RATE 79 ML/MIN (>89); GLUCOSE,RANDOM 81 MG/DL (74-106); SODIUM (NA) 141 MEQ/L (136-145)
[2017-06-11 09:57] LABS: ALKALINE PHOSPHATASE 67 U/L (45-117); ALT (GPT) 13 U/L (10-53); TOTAL BILIRUBIN ADULT 0.5 MG/DL (0.2-1.0)
--- NOTE | 2017-06-11 11:46 | EKG ---
Date Performed: 06/10/2017 Time Performed: 08:44:58 PTAGE: 81 years EKG: Atrial fibrillation with rapid ventricular response Limb lead reversal Clinical correlation is recommended Abnormal ECG PREVIOUS TRACING : 06/09/2017 23.00 DOCTOR: Roberto Zamora Interpretating Date/Time 06/11/2017 11:44:59
[2017-06-11] MEDS ORDERED: DILT120C50 PO (14:29)
[2017-06-11] MEDS ORDERED: ASPI-516 CHEW (14:32)
[2017-06-11] MEDS: HEPARIN-D5W 25,000 U/250 ML 250 ML IV PRN (15:51)
--- NOTE | 2017-06-11 17:31 | HHI.PR ---
Addendum To [facility] Progress Not Reason for addendum: Additonal documentation (d/w ; patient was cleared for discharge with outpatient f/u in one week.) Jazz Valencia MD Jun 11, 2017 17:31
== END 2017-06-11 18:54 | disposition home or self-care (01) | DRG 310 ==
LOC: NEPE 22:45 → NEDA 06-10 00:34 → HCIS 06-10 02:11
PROVIDERS: ADMIT Internal Medicine; ATTEND Internal Medicine
DX: I48.91 Unspecified atrial fibrillation (principal); I42.9 Cardiomyopathy, unspecified; I95.9 Hypotension, unspecified; E86.0 Dehydration; I25.10 Atherosclerotic heart disease of native coronary artery without angina pectoris; I10 Essential (primary) hypertension; F32.9 Major depressive disorder, single episode, unspecified; I48.92 Unspecified atrial flutter; R07.9 Chest pain, unspecified; E03.9 Hypothyroidism, unspecified; R29.6 Repeated falls; Z95.5 Presence of coronary angioplasty implant and graft
CPT/HCPCS: 71045; 80048; 80053; 82550; 83735; 84484; 85025; 85610; 85730; 93005; 93306; 96361; 96374; 96375; J1160; J1644; J2270; J2405; J7030; J7040

== ENCOUNTER → 2017-07-09 | Outpatient (CLI) | payer MEDICARE, BC ==
[~2017-07-09] MED LIST changes: +ASPI-516 CHEW; -CELE20TA PO; -CLON.1 PO; +CLOP75TA PO; +DILT120C50 PO; -DYAZ37.52 PO; +ESCI20TA PO; +FURO40TA PO; -LEVO75TA3 PO; +LEVO88TA2 PO; +PANT40TA3 PO; +POTA-163 PO; +SACU1TAB7 PO; +SIMV20TA PO
[2017-07-09 14:02] LABS: BASOPHIL % 0.9 % (0.0-2.0); EOSINOPHIL # 0.3 TH/MM3 (0-0.4); EOSINOPHIL % 6.9 % (0.0-4.0); HEMATOCRIT 36.9 % (35.0-46.0); HEMOGLOBIN 12.7 GM/DL (11.6-15.3); LYMPH % 41.5 % (9.0-44.0); MEAN CELL VOLUME 91.1 FL (80.0-100.0); MEAN CORPUSCULAR HEMOGLOBIN 31.3 PG (27.0-34.0); MEAN CORPUSCULAR HGB CONC 34.4 % (32.0-36.0); MEAN PLATELET VOLUME 8.9 FL (7.0-11.0); MONO % 7.8 % (0.0-8.0); MONOCYTE # 0.4 TH/MM3 (0-0.9); NEUT % 42.9 % (16.0-70.0); PLATELET COUNT 182 TH/MM3 (150-450); RED BLOOD COUNT 4.05 MIL/MM3 (4.00-5.30); WHITE BLOOD COUNT 4.7 TH/MM3 (4.0-11.0)
[2017-07-09 14:15] LABS: ALBUMIN 3.5 GM/DL (3.4-5.0); AST (GOT) 26 U/L (15-37); BICARBONATE 30.3 MEQ/L (21.0-32.0); BLOOD UREA NITROGEN 17 MG/DL (7-18); CALCIUM 9.3 MG/DL (8.5-10.1); CHLORIDE 99 MEQ/L (98-107); CREATININE 1.02 MG/DL (0.50-1.00); GLOMERULAR FILTRATION RATE 52 ML/MIN (>89); GLUCOSE,FASTING 87 MG/DL (74-99); SODIUM (NA) 135 MEQ/L (136-145)
[2017-07-09 14:17] LABS: CHOLESTEROL 136 MG/DL (120-200)
[2017-07-09 14:28] LABS: ALKALINE PHOSPHATASE 69 U/L (45-117); ALT (GPT) 20 U/L (10-53); CHOLESTEROL/ HDL RATIO 2.63 RATIO; HDL CHOLESTEROL 51.6 MG/DL (40.0-60.0); LDL CHOLESTEROL 69 MG/DL (0-99); TOTAL BILIRUBIN ADULT 0.5 MG/DL (0.2-1.0); TOTAL PROTEIN 6.6 GM/DL (6.4-8.2); TRIGLYCERIDES 79 MG/DL (42-150)
== END ==
LOC: PLAB 06:56
DX: I10 Essential (primary) hypertension (principal); E03.9 Hypothyroidism, unspecified; J41.0 Simple chronic bronchitis; I50.22 Chronic systolic (congestive) heart failure; K21.9 Gastro-esophageal reflux disease without esophagitis; D62 Acute posthemorrhagic anemia
CPT/HCPCS: 36415; 80053; 80061; 84443; 85025